=== PATIENT | female | born 1995 | race Caucasian/White ===

== ENCOUNTER 2018-07-28 15:05 | Emergency (ER) | payer MEDICAID ==
--- NOTE | 2018-07-28 15:43 | ERPHSYRPT ---
- History of Present Illness Time Seen by Provider: 07/28/18 15:36 Source: patient Exam Limitations: no limitations Patient Subjective Stated Complaint: is 7 weeks and started having lower abd cramping and spotting today. Triage Nursing Assessment: ambulated to room per self. skin w/d, color normal. resp nonlabored. states is spotting on a pad but has not soaked pad. Physician History: The patient is a 22-year-old at 7 weeks complaining of 3 days of intermittent lower abdominal cramping and one day of mild vaginal bleeding with tiny blood clots. She has changed one pad since this morning. The abdominal pain feels more crampy in nature. She states it is on either side of her lower abdomen. She is to meet with her OB doctor in 2 weeks, August 11. Her last menstrual period was June 09. Her OB doctor advised her to come to the ER today. Her past medical history is unremarkable. Timing/Duration: today Activites at Onset: none Quality: cramping Onset Location: suprapubic, groin Pain Radiation: none Severity of Pain-Max: mild Severity of Pain-Current: none Prior abdominal problems: none Sexual intercourse history: unprotected intercourse Modifying Factors: Improves With: nothing Associated Symptoms: abdominal pain (cramping), , vaginal discharge ( bleeding) Allergies/Adverse Reactions: No Known Drug Allergies Allergy (Unverified 07/28/18 15:20) Home Medications: Vits W-Ca,Fe,FA(<1Mg) [] 1 ea PO DAILY 07/28/18 [History] Hx Tetanus, Diphtheria Vaccination/Date Given: No Hx Influenza Vaccination/Date Given: No Hx Pneumococcal Vaccination/Date Given: No - Review of Systems Constitutional: No Fever, No Chills Eyes: No Symptoms Ears, Nose, & Throat: No Symptoms Respiratory: No Cough, No Dyspnea Cardiac: No Chest Pain, No Edema, No Syncope Abdominal/Gastrointestinal: Abdominal Pain (groin cramping), No Nausea, No Vomiting, No Diarrhea Genitourinary Symptoms: Vaginal Bleeding (minor with scant clots) Musculoskeletal: No Back Pain, No Neck Pain Skin: No Rash Neurological: No Dizziness, No Focal Weakness, No Sensory Changes Psychological: No Symptoms Endocrine: No Symptoms Hematologic/Lymphatic: No Symptoms Immunological/Allergic: No Symptoms All Other Systems: Reviewed and Negative - Past Medical History Pertinent Past Medical History: No - Past Surgical History Past Surgical History: No - Social History Smoking Status: Never smoker Exposure to second hand smoke: No Drug Use: none Patient Lives Alone: No - Female History Hx Last Menstrual Period: 06/09/18 Hx Now: Yes (7 weeks) - Nursing Vital Signs Nursing Vital Signs: Initial Vital Signs Temperature 98.5 F 07/28/18 15:13 Pulse Rate 85 07/28/18 15:13 Respiratory Rate 16 07/28/18 15:13 Blood Pressure 135/80 07/28/18 15:13 O2 Sat by Pulse Oximetry 100 07/28/18 15:13 Pain Scale Pain Intensity 0 - Physical Exam General Appearance: no apparent distress, alert Eye Exam: PERRL/EOMI, eyes nml inspection Ears, Nose, Throat Exam: normal ENT inspection, TMs normal, pharynx normal, moist mucous membranes Neck Exam: normal inspection, non-tender, supple, full range of motion Respiratory Exam: normal breath sounds, lungs clear, No respiratory distress Cardiovascular Exam: regular rate/rhythm, normal heart sounds, normal peripheral pulses Gastrointestinal/Abdomen Exam: soft, normal bowel sounds, No tenderness, No distention, No rebound Pelvic Exam: not done Rectal Exam: not done Back Exam: normal inspection, normal range of motion, No CVA tenderness, No vertebral tenderness Extremity Exam: normal inspection, normal range of motion, pelvis stable Neurologic Exam: alert, oriented x 3, cooperative, 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, normal mood/affect, sensation nml, No motor deficits Skin Exam: normal color, warm, dry Lymphatic Exam: No adenopathy SpO2 Interpretation: normal SpO2: 100 Oxygen Delivery: Room Air Ordered Tests: Active Orders 24 hr Category Date Time Status CULTURE,URINE Stat Lab 07/28/18 16:30 Received HCG QUALITATIVE,SERUM Stat Lab 07/28/18 Completed HCG, Quantitative (Inhouse) Stat Lab 07/28/18 Completed UA W/RFX UR CULTURE Stat Lab 07/28/18 16:30 Completed Lab/Rad Data: Laboratory Results 07/28/18 07/28/18 07/28/18 Range/Units Unknown Unknown 16:30 Beta HCG, Quant 1942.8 mIU/ml Serum , Qual POSITIVE (Negative) Urine Color YELLOW (YELLOW) Urine Appearance SLIGHTLY CLOUDY (CLEAR) Urine pH 8.0 (5-6) Ur Specific [place] 1.005 (1.005-1.025) Urine Protein 30 (Negative) Urine Ketones NEGATIVE (NEGATIVE) Urine Blood LARGE (0-5) Harinder/ul Urine Nitrite NEGATIVE (NEGATIVE) Urine Bilirubin NEGATIVE (NEGATIVE) Urine Urobilinogen NEGATIVE (0-1) mg/dL Ur Leukocyte Esterase NEGATIVE (NEGATIVE) Urine WBC (Auto) 3-5 (0-5) /HPF Urine RBC (Auto) 6-10 (0-2) /HPF U Epithel Cells (Auto) RARE (FEW) /HPF Urine Bacteria (Auto) RARE (NEGATIVE) /HPF Urine Culture Reflexed YES (NO) Urine Glucose NEGATIVE (NEGATIVE) mg/dL - Progress Progress: unchanged Counseled pt/family regarding: lab results, diagnosis, need for follow-up - Departure Time of Disposition: 17:32 Departure Disposition: Home Clinical Impression: Threatened in early Condition: Stable Critical Care Time: No Referrals: ANAHY WESTBROOK [Primary Care Provider] - Additional Instructions: You have a threatened spontaneous in early . The quantitative hCG is 1942. Take Tylenol as needed for discomfort. If you experienced significantly more pain, please return immediately to the ER. Otherwise, follow-up with your OB doctor next week.
[2018-07-28 16:25] LABS: Appearance SLIGHTLY CLOUDY (CLEAR); Bilirubin NEGATIVE (NEGATIVE); Blood LARGE Ery/ul (0-5); Glucose NEGATIVE (NEGATIVE); Ketones NEGATIVE (NEGATIVE); Leukocyte Esterase NEGATIVE (NEGATIVE); Nitrite NEGATIVE (NEGATIVE); Protein,Urine Dip 30 (Negative); Specific Gravity 1.005 (1.005-1.025); Urobilinogen NEGATIVE mg/dL (0-1)
[2018-07-28 17:18] VITALS: BP 116/60; PULSE 77
[2018-07-28 17:36] VITALS: O2SAT 100
== END 2018-07-28 17:45 | disposition home or self-care (01) ==
LOC: ED 15:05
DX: O20.0 Threatened abortion (principal)
CPT/HCPCS: 36415; 81001; 81025; 84702; 87086; 99283